=== PATIENT | male | born 1975 | race Caucasian/White ===

== ENCOUNTER 2018-11-18 09:31 | Emergency (ER) | payer MEDICAID ==
[~2018-11-18] VITALS: Wt 80.0 kg
[2018-11-18 09:35] VITALS: BP 148/90; PULSE 64; RESP 18
[2018-11-18] MEDS ORDERED: PRED20TA PO (13:02)
--- NOTE | 2018-11-18 14:29 | ERD ---
ER Documentation Chief Complaint Chief Complaint rash x 1 mos HPI Patient is a 43-year-old male with no medical problems who presents with a rash. The patient has had a rash for more than 1 month. He describes it as "red dots". It started on the face and is now on the trunk and arms bilaterally. He has no fevers. He says that it is not itchy. He has had no treatment as of yet. ROS All systems reviewed and are negative except as per history of present illness. Medications Home Meds Active Scripts Prednisone* (Prednisone*) 20 Mg Tab, 60 MG PO DAILY for 5 Days, TAB Prov:UBALDO AKERS MD 11/18/18 PMhx/Soc Medical and Surgical Hx: pt denies Medical Hx Hx Alcohol Use: No Hx Substance Use: No Hx Tobacco Use: No Smoking Status: Never smoker FmHx Family History: No diabetes Physical Exam Vitals Vital Signs Date Temp Pulse Resp B/P (MAP) Pulse Ox O2 O2 Flow FiO2 Time Delivery Rate 11/18/18 98.1 64 18 148/90 99 09:35 (109) Physical Exam Const: No acute distress Head: Atraumatic Eyes: Normal Conjunctiva ENT: Normal External Ears, Nose and Mouth. No lesions inside the mouth Neck: Full range of motion. No meningismus. Resp: Clear to auscultation bilaterally Cardio: Regular rate and rhythm, no murmurs Abd: Soft, non tender, non distended. Normal bowel sounds Skin: Patient has a diffuse macular rash which does partially brittany, some central umbilication's, no purpura Back: No midline or flank tenderness Ext: No cyanosis, or edema Neur: Awake and alert Psych: Normal Mood and Affect Result Diagram: 11/18/18 1005 11/18/18 1005 Results 24 hrs Laboratory Tests Test 11/18/18 10:05 White Blood Count 5.9 10^3/ul Red Blood Count 4.95 10^6/ul Hemoglobin 14.5 g/dl Hematocrit 43.2 % Mean Corpuscular Volume 87.3 fl Mean Corpuscular Hemoglobin 29.3 pg Mean Corpuscular Hemoglobin Concent 33.6 g/dl Red Cell Distribution Width 12.2 % Platelet Count 235 10^3/UL Mean Platelet Volume 9.6 fl Immature Granulocytes % 0.200 % Neutrophils % 64.6 % Lymphocytes % 25.2 % Monocytes % 6.1 % Eosinophils % 2.9 % Basophils % 1.0 % Nucleated Red Blood Cells % 0.0 /100WBC Immature Granulocytes # 0.010 10^3/ul Neutrophils # 3.8 10^3/ul Lymphocytes # 1.5 10^3/ul Monocytes # 0.4 10^3/ul Eosinophils # 0.2 10^3/ul Basophils # 0.1 10^3/ul Nucleated Red Blood Cells # 0.0 10^3/ul Prothrombin Time 13.0 Sec Prothrombin Time Ratio 1.0 INR International Normalized Ratio 0.97 Activated Partial Thromboplast Time 32.0 Sec Sodium Level 142 mmol/L Potassium Level 4.2 mmol/L Chloride Level 109 mmol/L Carbon Dioxide Level 24 mmol/L Anion Gap 9 Blood Urea Nitrogen 16 mg/dl Creatinine 0.59 mg/dl Est Glomerular Filtrat Rate mL/min > 60 mL/min Glucose Level 91 mg/dl Calcium Level 8.8 mg/dl Total Bilirubin 0.7 mg/dl Direct Bilirubin 0.00 mg/dl Indirect Bilirubin 0.7 mg/dl Aspartate Amino Transf (AST/SGOT) 27 IU/L Alanine Aminotransferase (ALT/SGPT) 31 IU/L Alkaline Phosphatase 91 IU/L Total Protein 7.0 g/dl Albumin 3.9 g/dl Globulin 3.10 g/dl Albumin/Globulin Ratio 1.25 Rapid Plasma Reagin NONREACTIVE Procedures/MDM Patient is a 43-year-old male presents with a rash. Laboratory studies including platelets, coagulation studies, and RPR were normal. I doubt syphilis, thrombocytopenia, or serious coagulation abnormality. I doubt serious infectious etiology. The patient is well-appearing otherwise. The patient will be treated with 5 days of prednisone for a presumed inflammatory process. The patient can return for any worsening symptoms. The patient will need to follow- up with the primary doctor and vice squad police officer for further diagnosis. Departure Diagnosis: Primary Impression: Rash Condition: Fair Patient Instructions: Self-Care for Skin Rashes Ref[facility] Usted se shell hecho un examen mdico de control que le indica que no est en machelle condicin que requiera tratamiento urgente en el Departamento de Emergencia. Un estudio ms profundo y el tratamiento de bello condicin pueden esperar sin ningn riesgo hasta que usted sea atendida/o en el consultorio de bello mdico o machelle clnica. Es responsabilidad suya arreglar machelle jessica para el seguimiento del benjamin. MANEJO DE CONDICIONES NO URGENTES EN EL FUTURO 1) Si usted tiene un mdico de atencin primaria: Usted debera llamar a bello mdico de atencin primaria antes de venir al departamento de emergencia. Despus de las horas de consultorio, bello doctor o bello asociado/a est disponible por telfono. El mdico o enfermero de francisco en el servicio telefnico puede asesorarle por matheus medio para atender el problema, o benjamin contrario se puede programar machelle jessica. 2) Si usted no tiene un mdico de atencin primaria: Llame al mdico o clnica de referencia que aparece abajo zaynab las horas de consultorio para hacer machelle jessica para que le vean. CLINICAS: [facility] [phone] [facility] [phone] [facility] [facility] [phone] [facility] [facility] [phone] [facility]. [place] [phone] [facility] [phone] Additional Instructions: Llame al doctor nombrado abajo (Referral Sources) MAANA y ilia machelle JESSICA PARA DENTRO DE MACHELLE SEMANA. Dgale a la secretaria que nosotros le instruimos hacer esta jessica.Avise o llame si bello condicin se empeora antes de la jessica. UBALDO AKERS MD Nov 18, 2018 14:29
== END 2018-11-18 13:16 | disposition home or self-care (01) ==
LOC: FTE 09:31
DX: R21 Rash and other nonspecific skin eruption (principal)
CPT/HCPCS: 36415; 80053; 85025; 85610; 85730; 86592; Z7502; 99283